=== PATIENT | male | born 1990 | race Two or more races ===

== ENCOUNTER 2023-07-22 09:45 | Inpatient (IN) | payer MEDICAID, OTHER ==
[~2023-07-22] VITALS: Ht 170.2 cm; Wt 72.7 kg
[2023-07-22] MEDS: SODIUM CHLORIDE 0.9% 1,000 ML IVB ONE (10:57)
[2023-07-22 11:09] LABS: Acetaminophen < 2.0 UG/ML (10.0-20.0); Salicylate < 3.0 mg/dL (2.8-20.0)
[2023-07-22 15:17] LABS: Urine Bacteria NONE SEEN /hpf (None Seen); Urine Blood Negative /uL (Negative); Urine Clarity Clear (Clear); Urine Color Yellow (Yellow); Urine Hyaline Cast FEW /lpf (0 - 2); Urine Protein, UAD 1+ (Negative); Urine Specific Gravity 1.017 (1.001-1.035); Urine Urobilinogen Normal (Negative); Urine WBC 1 /hpf (0 - 3); Urine pH 5.5 (5.0-8.0)
[2023-07-22 15:29] LABS: Amphetamine Screen, Urine Pos (NEGATIVE); Barbiturate Scree,Urine Neg (NEGATIVE); Benzodiazephine Screen, Urine Pos (NEGATIVE); Cannabinoid Screen, Urine Pos (NEGATIVE); Cocaine Screen, Urine Neg (NEGATIVE); Opiate Scree,Urine Neg (NEGATIVE); Phencyclidine Screen, Urine Neg (NEGATIVE)
[2023-07-22 17:33] VITALS: PULSE 131; RESP 37; O2SAT 86
[2023-07-22 20:25] VITALS: PULSE 102; RESP 20; O2SAT 100
[2023-07-23] MEDS: IPRATROPIUM BROM 0.5 MG/2.5ML INH SOL ONE (01:42)
[2023-07-23] MEDS: IPRATROPIUM BROM 0.5 MG/2.5ML INH SOL HHN ONE (01:42)
[2023-07-23] MEDS: ALBUTEROL SULF 2.5 MG/0.5ML(0.5%) NEB SOLN HHN ONE (01:42)
[2023-07-23 01:48] LABS: Base Excess -0.9 mmol/L (-2.0-2.0)
[2023-07-23 01:52] LABS: Basophils # (auto) 0 10 ^3/uL (0-0.2); Basophils % (auto) 0.1 % (0.0-2.0); Eosinophils # (auto) 0.1 10 ^3/uL (0-0.8); Eosinophils % (auto) 0.5 % (0.0-7.0); Hematocrit 36.2 % (41.0-53.0); Hemoglobin 11.7 g/dL (13.5-17.5); Lymphocytes # (auto) 1.5 10 ^3/uL (0.4-5.4); Lymphocytes % (auto) 12.7 % (10.0-50.0); Mean Corpuscular Hemoglobin 28.7 pg (28.0-32.0); Mean Corpuscular Hgb Conc. 32.3 g/dL (32.0-36.0); Mean Corpuscular Volume 88.8 fL (80.0-100.0); Monocytes # (auto) 0.9 10 ^3/uL (0-1.3); Monocytes % (auto) 7.5 % (0.0-12.0); Neutrophils # (auto) 9.2 10 ^3/uL (1.6-8.6); Neutrophils % (auto) 79.2 % (37.0-80.0); Nucleated Red Blood Cells % 0.1 %; Red Blood Cells 4.07 10^6/uL (4.5-5.90); Red Cell Distribution Width 13.5 % (11.8-14.3); White Blood Cell 11.6 10^3/uL (4.4-10.8)
[2023-07-23 02:06] LABS: INR 1.09 (0.9-1.15); Partial Thromboplastin Time 30.2 SEC (24.5-34.5); Prothrombin Time 11.4 sec (9.3-11.8)
[2023-07-23 02:23] LABS: Alanine Aminotransferase 48 U/L (7-40); Albumin 3.8 g/dL (3.2-4.8); Alkaline Phosphatase 52 U/L (46-116); Anion Gap 4 (5-15); Aspartate Aminotransferase 81 U/L (13-40); BUN/Creatinine Ratio 9.2 (10.0-20.0); Bilirubin, Total 0.5 mg/dL (0.2-1.0); Blood Urea Nitrogen 12 mg/dL (9-23); Calcium 8.1 mg/dL (8.7-10.4); Carbon Dioxide 25 mmol/L (20-30); Chloride 108 mmol/L (98-107); Glucose 101 mg/dL (74-106); Magnesium 1.9 mg/dL (1.6-2.6); Potassium 4.1 mmol/L (3.5-5.1); Sodium 137 mmol/L (136-145)
[2023-07-23 02:24] LABS: Total Protein 5.9 g/dL (5.7-8.2)
[2023-07-23] MEDS: HEPARIN SODIUM (PORCINE) 5000 UNITS/ML 1ML VIAL IV ONE (03:15)
[2023-07-23] MEDS: HEPARIN DRIP/D5W 100UNITS/ML 250 ML IV SCH ×2 (03:15→22:54)
[2023-07-23] MEDS: SODIUM CHLORIDE 0.9% 1,000 ML IV SCH (04:00)
[2023-07-23] MEDS ORDERED: MORPHINE SULFATE INJ 2 MG/ml SYRG IV PRN (04:00)
[2023-07-23] MEDS ORDERED: NITROGLYCERIN 0.4 MG SL TAB SL PRN (04:00)
[2023-07-23] MEDS ORDERED: ONDANSETRON HCL 4 MG/2 ML VIAL IV PRN (04:00)
[2023-07-23] MEDS: ATORVASTATIN 20 MG TAB PO ONE (04:11)
[2023-07-23] MEDS: CLINDAMYCIN 600MG IV 50 ML IV ONE (04:12)
[2023-07-23] MEDS: levoFLOXacin 500MG 100 ML IV ONE (04:12)
[2023-07-23 04:18] LABS: Magnesium 1.9 mg/dL (1.6-2.6)
[2023-07-23] MEDS: CLINDAMYCIN 600MG IV 50 ML IV SCH (06:28)
[2023-07-23] MEDS: cefTRIAXone 1GM/50ML D5W 50 ML IV SCH (09:00)
[2023-07-23] MEDS ORDERED: METOPROLOL SUCCINATE XL 50 MG TAB PO SCH (10:00)
[2023-07-23] MEDS ORDERED: ASPirin 81 mg TAB PO SCH (10:00)
[2023-07-23] MEDS: ASPirin 325 MG TAB PO SCH (10:00)
[2023-07-23 10:39] LABS: INR 1.16 (0.9-1.15); Partial Thromboplastin Time 51.4 SEC (24.5-34.5); Prothrombin Time 12.1 sec (9.3-11.8)
[2023-07-23 16:34] LABS: INR 1.09 (0.9-1.15); Partial Thromboplastin Time 52.7 SEC (24.5-34.5); Prothrombin Time 11.4 sec (9.3-11.8)
[2023-07-23 17:16] VITALS: PULSE 106; RESP 20; O2SAT 96
[2023-07-23 19:45] VITALS: PULSE 18; RESP 18; O2SAT 100
[2023-07-23 21:59] LABS: INR 1.05 (0.9-1.15); Partial Thromboplastin Time 44.9 SEC (24.5-34.5)
[2023-07-24 07:28] LABS: Basophils # (auto) 0 10 ^3/uL (0-0.2); Basophils % (auto) 0.4 % (0.0-2.0); Eosinophils # (auto) 0.2 10 ^3/uL (0-0.8); Eosinophils % (auto) 2.2 % (0.0-7.0); Hematocrit 37.2 % (41.0-53.0); Hemoglobin 12.3 g/dL (13.5-17.5); Lymphocytes % (auto) 17.4 % (10.0-50.0); Mean Corpuscular Hemoglobin 28.8 pg (28.0-32.0); Mean Corpuscular Hgb Conc. 32.9 g/dL (32.0-36.0); Mean Corpuscular Volume 87.3 fL (80.0-100.0); Neutrophils # (auto) 8.1 10 ^3/uL (1.6-8.6); Nucleated Red Blood Cells % 0.1 %; Red Blood Cells 4.26 10^6/uL (4.5-5.90); Red Cell Distribution Width 12.8 % (11.8-14.3); White Blood Cell 11.4 10^3/uL (4.4-10.8)
[2023-07-24 07:49] LABS: INR 1.04 (0.9-1.15); Partial Thromboplastin Time 39.7 SEC (24.5-34.5); Prothrombin Time 10.9 sec (9.3-11.8)
[2023-07-24 07:50] LABS: Alanine Aminotransferase 46 U/L (7-40); Alkaline Phosphatase 60 U/L (46-116); Anion Gap 7 (5-15); Aspartate Aminotransferase 51 U/L (13-40); BUN/Creatinine Ratio 7.6 (10.0-20.0); Blood Urea Nitrogen 7 mg/dL (9-23); Calcium 9.1 mg/dL (8.5-10.1); Carbon Dioxide 24 mmol/L (20-30); Chloride 106 mmol/L (98-107); Glucose 89 mg/dL (74-106); Potassium 3.8 mmol/L (3.5-5.1); Sodium 137 mmol/L (136-145)
[2023-07-24 07:51] LABS: Bilirubin, Total 0.6 mg/dL (0.2-1.0); Total Protein 6.1 g/dL (5.7-8.2)
[2023-07-24 08:00] VITALS: PULSE 83; RESP 22; O2SAT 97
[2023-07-24] MEDS: HEPARIN DRIP/D5W 100UNITS/ML 250 ML IV SCH (08:46)
[2023-07-24 09:23] LABS: Free T3 2.35 pg/mL (2.3-4.2)
[2023-07-24 09:24] LABS: Free T4 (Free Thyroxine) 1.1 ng/dL (0.89-1.76)
[2023-07-24] MEDS: AZITHROMYCIN 500MG/ 250ML 250 ML IV SCH (09:26)
[2023-07-24] MEDS: ASPirin 81 mg TAB PO SCH (09:26)
[2023-07-24] MEDS ORDERED: AUG875T PO (15:20)
[2023-07-24 17:13] VITALS: BP 132/71; PULSE 94; RESP 18; TEMP 98.2; O2SAT 94
[2023-07-24 18:00] VITALS: BP 105/63; PULSE 70; RESP 18; O2SAT 97
== END 2023-07-24 18:59 | disposition home or self-care (01) | DRG 917 ==
LOC: EDBD 09:45 → ER 09:45 → TELE 07-23 03:57
PROVIDERS: ADMIT Internal Medicine Pulmonary Disease; ATTEND Internal Medicine Pulmonary Disease
DX: T43.621A Poisoning by amphetamines, accidental (unintentional), initial encounter (principal); G92.8 Other toxic encephalopathy; I21.4 Non-ST elevation (NSTEMI) myocardial infarction; J69.0 Pneumonitis due to inhalation of food and vomit; I42.9 Cardiomyopathy, unspecified; E87.70 Fluid overload, unspecified; F17.200 Nicotine dependence, unspecified, uncomplicated; X58.XXXA Exposure to other specified factors, initial encounter; Z91.199 Patient's noncompliance with other medical treatment and regimen due to unspecified reason
CPT/HCPCS: 36415; 36600; 70450; 71045; 71275; 80053; 80061; 80307; 80320; 80329; 81001; 82805; 83605; 83735; 83880; 84439; 84443; 84481; 84484; 85025; 85610; 85730; 87040; 93005; 93306; 94640; 96361; 96365; 96375; G0378; J1956; J3490

== ENCOUNTER 2024-07-02 12:24 | Inpatient (IN) | payer MEDICAID ==
[~2024-07-02] VITALS: Ht 160 cm; Wt 64.5 kg
[~2024-07-02 12:24] MED LIST: AUG875T PO
--- NOTE | 2024-07-02 13:24 | ED.PDOC ---
Musculoskeletal HPI Comments 34 year old male presents to the ED with chief complaint of left arm swelling and pain. Patient reports that he had noticed that his left arm had become increasingly swollen with associated redness and throbbing pain which radiates from his left elbow. Patient relays that it has worsened over time. Patient states he believes a spider bit him as he sleeps in an abandoned home and it is very unclean. Patient denies any IV drug use, fever, chills, numbness, weakness, or dizziness. Chief Complaint: Upper Extremity Time Seen by MD: 13:21 Primary Care Provider: ARIN Reviewed Notes: Nurses Notes, Medications, Allergies Allergies: Coded Allergies: NO KNOWN ALLERGIES (Unverified , 07/22/23) Home Meds Active Scripts Amoxicillin & Pot Clavulanate (AUGMENTIN TABLET) 875 Mg Tb, 875 MG PO BID for 7 Days, #14 TAB Prov:JAMEL PARNELL RESIDENT 07/24/23 Information Source: Patient Mode of Arrival: Ambulatory Location: Left Extremity Location: Arm Timing: Days Prehospital treatment: None Severity: Moderate Able to Move Extremity: Yes Bear Weight: Fully Pain: Moderate Mechanism: Spontaneous Circumstances: Spontaneous Onset of Symptoms: Spontaneous Symptoms: Swelling, Pain, Erythema, Warmth DVT Risk Factors: NONE Past Medical History PAST MEDICAL HISTORY: Denies Surgical History: Unknown Family History Family History: Unknown Social History Smoker: Cigarettes Alcohol: Denies ETOH Use Drugs: Marijuana, Methamphetamine, Other Lives In: Homeless Constitutional: denies: chills, diaphoresis, fatigue, fever, malaise, sweats, weakness, others EENTM: denies: blurred vision, double vision, ear bleeding, ear discharge, ear drainage, ear pain, ear ringing, eye pain, eye redness, hearing loss, mouth pain, mouth swelling, nasal discharge, nose bleeding, nose congestion, nose pain, photophobia, tearing, throat pain, throat swelling, voice changes, others Respiratory: denies: cough, hemoptysis, orthopnea, SOB at rest, shortness of breath, SOB with excertion, stridor, wheezing, others Cardiovascular: denies: chest pain, dizzy spells, diaphoresis, Dyspnea on exertion, edema, irregular heart beat, left arm pain, lightheadedness, palpitations, PND, syncope, others Gastrointestinal: denies: abdomen distended, abdominal pain, blood streaked bowels, constipated, diarrhea, dysphagia, difficulty swallowing, hematemesis, melena, nausea, poor appetite, poor fluid intake, rectal bleeding, rectal pain, vomiting, others Genitourinary: denies: burning, dysuria, flank pain, frequency, hematuria, inco ntinence, penile discharge, penile sore, pain, testicle pain, testicle swelling, urgency, others Neurological: denies: dizziness, fainting, headache, left sided numbness, left sided weakness, numbness, paresthesia, pre-existing deficit, right sided numbness, right sided weakness, seizure, speech problems, tingling, tremors, weakness, others Musculoskeletal: denies: back pain, gout, joint pain, joint swelling, muscle pain, muscle stiffness, neck pain, others Integumetry: reports: others (Left arm swelling, redness, and pain); denies: bruises, change in color, change in hair/nails, dryness, laceration, lesions, lumps, rash, wounds Allergic/Immunocompromised: denies: Difficulty Healing, Frequent Infections, Hives, Itching, others Hematologic/Lymphatic: denies: anemia, blood clots, easy bleeding, easy bruising, swollen glands, others Endocrine: denies: excessive hunger, excessive sweating, excessive thirst, excessive urination, flushing, intolerance to cold, intolerance to heat, unexplained weight gain, unexplained weight loss, others Psychiatric: denies: anxiety, bipolar disorder, depression, hopeless, panic disorder, schizophrenia, sleepless, suicidal, others All Other Systems: Reviewed and Negative Physical Exam General Appearance: Moderate Distress, Normal HEENT: Normal ENT Inspection, PERRL/EOMI Neck: Full Range of Motion, Non-Tender, Normal, Normal Inspection Respiratory: Chest Non-Tender, Lungs Clear, No Accessory Muscle Use, No Respiratory Distress, Normal Breath Sounds Cardiovascular: No Edema, No JVD, No Murmur, No Gallop, Normal Peripheral Pulses, Regular Rate/Rhythm Breast Exam: Deferred Gastrointestinal: No Organomegaly, Non Tender, No Pulsatile Mass, Normal Bowel Sounds, Soft Genitalia: Deferred Pelvic: Deferred Rectal: Deferred Extremities: No calf tenderness, Normal capillary refill, Normal range of motion, Non-tender, No pedal edema, Swelling (Left elbow forearm) Musculoskeletal : Apperance: Normal Neurologic: Alert, retanned leather roller II-XII nml as Tested, No Motor Deficits, Normal Affect, Normal Mood, No Sensory Deficits Cerebellar Function: Normal Reflexes: Normal Skin: Dry, Normal Color, Warm Peripheral Pulses: 3+ Radial (R), 3+ Radial (L) Lymphatic: No Adenopathy Was a procedure done? Was a procedure done?: No Differential Diagnosis EXT Differential Diagnosis: Cellulitis X-Ray, Labs, Meds, VS Vital Signs Date Time Temp Pulse Resp B/P (MAP) Pulse Ox O2 Delivery O2 Flow Rate FiO2 07/02/24 12:52 99.0 140 19 131/82 (98) 95 Lab Test 07/02/24 14:01 Range/Units White Blood Count 23.8 H 4.4-10.8 10^3/uL Red Blood Count 4.73 4.5-5.90 10^6/uL Hemoglobin 13.8 13.5-17.5 g/dL Hematocrit 41.0 41.0-53.0 % Mean Corpuscular Volume 86.6 80.0-100.0 fL Mean Corpuscular Hemoglobin 29.1 28.0-32.0 pg Mean Corpuscular Hemoglobin Concent 33.6 32.0-36.0 g/dL Red Cell Distribution Width 12.0 11.8-14.3 % Platelet Count 396 140-450 10^3/uL Mean Platelet Volume 7.3 6.9-10.8 fL Neutrophils (%) (Auto) 87.3 H 37.0-80.0 % Lymphocytes (%) (Auto) 6.2 L 10.0-50.0 % Monocytes (%) (Auto) 6.0 0.0-12.0 % Eosinophils (%) (Auto) 0.1 0.0-7.0 % Basophils (%) (Auto) 0.4 0.0-2.0 % Neutrophils # (Auto) 20.8 H 1.6-8.6 10 ^3/uL Lymphocytes # (Auto) 1.5 0.4-5.4 10 ^3/uL Monocytes # (Auto) 1.4 H 0-1.3 10 ^3/uL Eosinophils # (Auto) 0 0-0.8 10 ^3/uL Basophils # (Auto) 0.1 0-0.2 10 ^3/uL Nucleated Red Blood Cells 0.0 % Sodium Level 135 L 136-145 mmol/L Potassium Level 4.1 3.5-5.1 mmol/L Chloride Level 100 98-107 mmol/L Carbon Dioxide Level 25 20-31 mmol/L Anion Gap 10 5-15 Blood Urea Nitrogen 12 9-23 mg/dL Creatinine 1.14 0.700-1.30 mg/dL Glomerular Filtration Rate Calc 85 >90 mL/min BUN/Creatinine Ratio 10.5 10.0-20.0 Serum Glucose 118 H 74-106 mg/dL Lactic Acid Level 1.1 0.4-2.0 mmol/L Calcium Level 10.1 8.7-10.4 mg/dL Patient alert. Has swelling redness of the left elbow extending to the hand. Vitals stable. Answering all questions. Was given Rocephin. Was given clindamycin. Establish intravenous access. Was given fluids. Denies use of any drugs. WBC elevated. Denies shortness a breath. No leg swelling. Explained to the patient. Continue cardiac monitoring. Time of 1ST Reevaluation: 14:21 Reevaluation 1ST: Unchanged Patient Education/Counseling: Diagnosis, Treatment Family Education/Counseling: No Family Present Additional Information I reviewed the following notes from patient's past medical encounters: 07/23/23 for ALOC due to polysubstance abuse The following tests were ordered, and results were reviewed by me: Lactic, Blood culture, CBC, BMP, UDS Additional Information was gathered from interviewing the following independent historians: None I reviewed and agreed with the following test results read by other providers: None I discussed treatment and results with medical personnel. Departure 1 Departure Time of Disposition: 15:17 Impression: Primary Impression: Cellulitis Qualified Codes: L03.114 - Cellulitis of left upper limb Disposition: ADMITTED INPATIENT Admit to: Med Surg Condition: Guarded Critical Care Note Critical Care Time?: No Stability Stability form required: No Heart Score Heart Score: Heart Score Response (Comments) Value History N/A 0 EKG N/A 0 Age N/A 0 Risk Factors N/A 0 Troponin N/A 0 Total 0 I personally scribed for STONE QUIROGA MD ([email or web address]) on 07/02/24 at 13:24. Electronically submitted by Abimael Hogan ([email or web address]). I personally scribed for STONE QUIROGA MD ([email or web address]) on 07/02/24 at 13:25. Electronically submitted by Abimael Hogan ([email or web address]). STONE QUIROGA MD Jul 02, 2024 13:24
[2024-07-02] MEDS: SODIUM CHLORIDE 0.9% 1,000 ML IV ONE ×2 (13:30→15:27)
[2024-07-02 14:21] LABS: Basophils # (auto) 0.1 10 ^3/uL (0-0.2); Basophils % (auto) 0.4 % (0.0-2.0); Eosinophils # (auto) 0 10 ^3/uL (0-0.8); Eosinophils % (auto) 0.1 % (0.0-7.0); Hemoglobin 13.8 g/dL (13.5-17.5); Lymphocytes # (auto) 1.5 10 ^3/uL (0.4-5.4); Lymphocytes % (auto) 6.2 % (10.0-50.0); Mean Corpuscular Hemoglobin 29.1 pg (28.0-32.0); Mean Corpuscular Hgb Conc. 33.6 g/dL (32.0-36.0); Mean Corpuscular Volume 86.6 fL (80.0-100.0); Monocytes # (auto) 1.4 10 ^3/uL (0-1.3); Neutrophils # (auto) 20.8 10 ^3/uL (1.6-8.6); Neutrophils % (auto) 87.3 % (37.0-80.0); Platelet Count (auto) 396 10^3/uL (140-450); Red Blood Cells 4.73 10^6/uL (4.5-5.90); White Blood Cell 23.8 10^3/uL (4.4-10.8)
[2024-07-02 14:30] LABS: Chloride 100 mmol/L (98-107); Potassium 4.1 mmol/L (3.5-5.1)
[2024-07-02 14:31] LABS: Anion Gap 10 (5-15); Carbon Dioxide 25 mmol/L (20-31)
[2024-07-02 14:32] LABS: Calcium 10.1 mg/dL (8.7-10.4)
[2024-07-02 14:36] LABS: BUN/Creatinine Ratio 10.5 (10.0-20.0); Blood Urea Nitrogen 12 mg/dL (9-23)
[2024-07-02 14:37] LABS: Glucose 118 mg/dL (74-106); Sodium 135 mmol/L (136-145)
[2024-07-02] MEDS: cefTRIAXone 1GM/50ML D5W 50 ML IV ONE (15:37)
[2024-07-02] MEDS ORDERED: ONDANSETRON HCL 4 MG/2 ML VIAL IV PRN (16:15)
[2024-07-02] MEDS: CLINDAMYCIN 600MG IV 50 ML IV ONE (16:16)
--- NOTE | 2024-07-02 16:49 | DVHHP2 ---
History of Present Illness Reason for Visit: Left arm pain and swelling History of Present Illness Barron Hicks is a 34-year-old male with no past medical history who presents to the ED for left arm pain and swelling x1 day. Patient reports that he thinks it is a spider bite and reports that he is homeless. Patient denies taking any medications, alcohol abuse, smoking, or illicit drug use. Patient denies chest pain, shortness of breath, abdominal pain, nausea, vomiting, diarrhea, recent sick contacts, IV drug use, lightheadedness, and dizziness. Past Surgical History: None Family History: None Smoke: No ALCOHOL: none Drugs: None Lives: Homeless Domestic Violence: Neg Review of Systems Constitutional: Yes: Fever; No: Chills, Sweats, Weakness, Malaise, Other Eyes: No: Pain, Vision change, Conjunctivae inflammation, Eyelid inflammation, Other, Redness ENT: No: Ear pain, Ear discharge, Nose pain, Nose discharge, Nose congestion, Mouth pain, Mouth swelling, Throat pain, Throat swelling, Other Respiratory: No: Cough, Dry, Shortness of breath, SOB with excertion, Wheezing, Hemoptysis, Pleuritic Pain, Sputum, Wheezing, Other Cardiovascular: No: Chest Pain, Palpitations, Orthopnea, Paroxysmal Noc. Dyspnea, Edema, Lt Headedness, Other Gastrointestinal: No: Nausea, Vomiting, Abdominal Pain, Diarrhea, Constipation, Melena, Hematochezia, Other Genitourinary: No Dysuria, No Frequency, No Incontinence, No Hematuria, No Retention, No Other Musculoskeletal: arm pain; No: other, neck pain, shoulder pain, back pain, hand pain, leg pain, foot pain Skin: Other (Swelling and erythema left arm); No: Rash, Lesions, Jaundice, Bruising Neurological: No: Weakness, Numbness, Incoordination, Change in speech, Confusion, Seizures, Other Allergies: Coded Allergies: NO KNOWN ALLERGIES (Unverified , 07/22/23) Medications Current Medications Medications Dose Ordered Sig/Norah Route Start Time Stop Time Status Last Admin Dose Admin Ceftriaxone Sodium 50 ml @ 100 mls/hr DAILY@09 IV 07/03/24 09:00 UNV Clindamycin Phosphate 50 ml @ 50 mls/hr Q8HR IV 07/02/24 22:00 UNV Sodium Chloride 1,000 ml @ 100 mls/hr Q10H IV 07/02/24 16:15 UNV Acetaminophen/ Hydrocodone Bitart 1 tab Q4HP PRN PO 07/02/24 16:15 UNV Ondansetron HCl 4 mg Q4HP PRN IV 07/02/24 16:15 UNV Acetaminophen 650 mg Q6HP PRN PO 07/02/24 16:15 UNV Morphine Sulfate 2 mg Q4HPRN PRN IV 07/02/24 16:15 UNV Exam Vital Signs Vital Signs Date Time Temp Pulse Resp B/P (MAP) Pulse Ox O2 Delivery O2 Flow Rate FiO2 07/02/24 15:23 100.0 130 18 136/74 (94) 95 100.0 07/02/24 15:23 Room Air General Appearance: Alert, Oriented X3, Cooperative, No acute distress HEENT: Atraumatic, PERRLA, EOMI Respiratory: Normal air movement Cardiovascular: Normal S1, Normal S2, No murmurs Abdominal: Normal bowel sounds, Soft, No tenderness, No hepatospenomegaly, No masses Extremities: Other (Left arm from elbow to middle forearm erythema) Neuro: Normal gait, Normal speech, Strength at 5/5 X4 ext, Normal tone, Sensati on intact Psych/Mental Status: Mental status NL, Mood NL Labs/Xrays Labs Test 07/02/24 14:01 Range/Units White Blood Count 23.8 H 4.4-10.8 10^3/uL Red Blood Count 4.73 4.5-5.90 10^6/uL Hemoglobin 13.8 13.5-17.5 g/dL Hematocrit 41.0 41.0-53.0 % Mean Corpuscular Volume 86.6 80.0-100.0 fL Mean Corpuscular Hemoglobin 29.1 28.0-32.0 pg Mean Corpuscular Hemoglobin Concent 33.6 32.0-36.0 g/dL Red Cell Distribution Width 12.0 11.8-14.3 % Platelet Count 396 140-450 10^3/uL Mean Platelet Volume 7.3 6.9-10.8 fL Neutrophils (%) (Auto) 87.3 H 37.0-80.0 % Lymphocytes (%) (Auto) 6.2 L 10.0-50.0 % Monocytes (%) (Auto) 6.0 0.0-12.0 % Eosinophils (%) (Auto) 0.1 0.0-7.0 % Basophils (%) (Auto) 0.4 0.0-2.0 % Neutrophils # (Auto) 20.8 H 1.6-8.6 10 ^3/uL Lymphocytes # (Auto) 1.5 0.4-5.4 10 ^3/uL Monocytes # (Auto) 1.4 H 0-1.3 10 ^3/uL Eosinophils # (Auto) 0 0-0.8 10 ^3/uL Basophils # (Auto) 0.1 0-0.2 10 ^3/uL Nucleated Red Blood Cells 0.0 % Sodium Level 135 L 136-145 mmol/L Potassium Level 4.1 3.5-5.1 mmol/L Chloride Level 100 98-107 mmol/L Carbon Dioxide Level 25 20-31 mmol/L Anion Gap 10 5-15 Blood Urea Nitrogen 12 9-23 mg/dL Creatinine 1.14 0.700-1.30 mg/dL Glomerular Filtration Rate Calc 85 >90 mL/min BUN/Creatinine Ratio 10.5 10.0-20.0 Serum Glucose 118 H 74-106 mg/dL Lactic Acid Level 1.1 0.4-2.0 mmol/L Calcium Level 10.1 8.7-10.4 mg/dL Assessment/Plan Assessment/Plan Assessment/Plan: Left arm cellulitis rule out sepsis Labs UA IV antibiotics-clindamycin plus ceftriaxone NS 2 L given ED UDS Lactic Blood cultures ESR CRP CT left upper arm A.m. labs director learning services consult FEN/PPX Diet IV fluids DVT prophylaxis not indicated patient ambulating PUD prophylaxis not indicated no history of GERD or GI bleed Discussed plan of care with patient and nurse Admit to [facility] No home medications to reconcile I Plan discussed with: Patient My Orders Orders - OLGA LIDIA CAMPBELL [employer] Procedure Category Date Status Time Erythrocyte LAB 07/02/24 Logged Sedimentation Rate 16:10 C-Reactive Protein LAB 07/02/24 Logged 16:10 Ceftriaxone 1gm/50ml PHA 07/03/24 Logged D5w (Rocephin) 09:00 Clindamycin 600mg Iv PHA 07/02/24 Logged (Cleocin Iv) 22:00 Urinalysis LAB 07/02/24 Logged 16:[address] 07/02/24 Logged Contrast 16:12 Allergies NIYA 07/02/24 In Process 16:12 Code Status CODE 07/02/24 Transmitted 16:12 Sodium Chloride 0.9% PHA 07/02/24 Logged 16:15 Hydrocodone-Acet PHA 07/02/24 Logged 5/325mg Tab ([place] 16:15 Ondansetron Hcl PHA 07/02/24 Logged (Zofran) 16:15 Complete Blood Count LAB 07/03/24 Verified 04:00 Comprehensive LAB 07/03/24 Verified Metabolic Panel 04:00 Cardiac DIET 07/02/24 Transmitted Diet-2gna,Lofat,Lochol Dinner Acetaminophen Tablet PHA 07/02/24 Logged (Tylenol Tablet) 16:15 Morphine Sulfate PHA 07/02/24 Logged Injection 16:15 Admit ADMIT 07/02/24 Transmitted 16:31 Date of Service: Jul 02, 2024 Billing Provider: OLGA LIDIA CAMPBELL Common Visit Codes: [id number] INP/OBS CARE (HIGH) OLGA LIDIA CAMPBELL Jul 02, 2024 16:49
[2024-07-02] MEDS: SODIUM CHLORIDE 0.9% 1,000 ML IV SCH (16:50)
[2024-07-02 17:48] LABS: Erythrocyte Sedimentation Rate 13 mm/hr (0-20)
--- NOTE | 2024-07-02 18:22 | DVH ---
INDICATION: pain and swelling COMPARISON: None TECHNIQUE: CT of the right was performed without contrast. Volume transverse images were obtained a nd reconstructed in multiple planes using bone and soft tissue algorithms. CONTRAST: None Radiation Dose Information: CT Dose: CTDI volume is 7.75 mGy. Dose-length product is 430.23 mGy*cm FINDINGS: The alignment is normal. The joint spaces are normal. There is no fracture, dislocation, or focal osseous lesions. Edema in the soft tissues dorsally of the proximal ulna. There are no fluid collections identified. Findings may represent a cellulitis. There are no bony fractures or erosions. IMPRESSION: No fractures or dislocations Subcutaneous edema in the dorsal soft tissues of the proximal ulna. There are no drainable fluid collections No radiopaque foreign bodies.
[2024-07-02] MEDS: CLINDAMYCIN 600MG IV 50 ML IV SCH (22:31)
[2024-07-03] VITALS (8 sets, daily range): BP systolic 111–131; BP diastolic 56–82; PULSE 106–140; RESP 16–20; TEMP 97.8–101.6; O2SAT 95–98
[2024-07-03 05:48] LABS: Basophils # (auto) 0.1 10 ^3/uL (0-0.2); Basophils % (auto) 0.3 % (0.0-2.0); Eosinophils # (auto) 0 10 ^3/uL (0-0.8); Eosinophils % (auto) 0.2 % (0.0-7.0); Hematocrit 38.1 % (41.0-53.0); Hemoglobin 12.7 g/dL (13.5-17.5); Lymphocytes # (auto) 2.1 10 ^3/uL (0.4-5.4); Lymphocytes % (auto) 8.7 % (10.0-50.0); Mean Corpuscular Hemoglobin 29.9 pg (28.0-32.0); Mean Corpuscular Hgb Conc. 33.3 g/dL (32.0-36.0); Mean Corpuscular Volume 89.9 fL (80.0-100.0); Monocytes # (auto) 2.2 10 ^3/uL (0-1.3); Monocytes % (auto) 9.2 % (0.0-12.0); Neutrophils # (auto) 19.9 10 ^3/uL (1.6-8.6); Neutrophils % (auto) 81.6 % (37.0-80.0); Nucleated Red Blood Cells % 0.1 %; Platelet Count (auto) 298 10^3/uL (140-450); Red Blood Cells 4.24 10^6/uL (4.5-5.90); Red Cell Distribution Width 12.3 % (11.8-14.3); White Blood Cell 24.4 10^3/uL (4.4-10.8)
[2024-07-03 06:12] LABS: Albumin 4.3 g/dL (3.2-4.8); Alkaline Phosphatase 103 U/L (46-116); Anion Gap 11 (5-15); Aspartate Aminotransferase 38 U/L (13-40); BUN/Creatinine Ratio 13.5 (10.0-20.0); Blood Urea Nitrogen 12 mg/dL (9-23); Calcium 8.9 mg/dL (8.7-10.4); Carbon Dioxide 23 mmol/L (20-31); Chloride 101 mmol/L (98-107); Glucose 91 mg/dL (74-106); Potassium 4.3 mmol/L (3.5-5.1)
[2024-07-03 06:13] LABS: Bilirubin, Total 1.1 mg/dL (0.2-1.0); Total Protein 6.1 g/dL (5.7-8.2)
[2024-07-03 06:14] LABS: Alanine Aminotransferase 52 U/L (7-40); Sodium 135 mmol/L (136-145)
[2024-07-03] MEDS: MORPHINE SULFATE INJ 2 MG/ml SYRG IV PRN (08:47)
[2024-07-03] MEDS: cefTRIAXone 1GM/50ML D5W 50 ML IV SCH (10:27)
[2024-07-03] MEDS: HYDROcodone-ACET 5/325MG TAB PO PRN (10:28)
--- NOTE | 2024-07-03 13:51 | DVHPN2 ---
Reviewed: Care Plan, H&P, Labs, Medications Changes from previous H/P or p: No Changes General: Per HPI Eyes: No Pain, No Vision change, No Conjunctivae inflammation, No Eyelid inflammation, No Other, No Redness ENT: No Ear pain, No Ear discharge, No Nose pain, No Nose discharge, No Nose congestion, No Mouth pain, No Mouth swelling, No Throat pain, No Throat swelling, No Other Cardiovascular: No Chest Pain, No Palpitations, No Orthopnea, No Paroxysmal Noc. Dyspnea, No Edema, No Lt Headedness, No Other Respiratory: No Cough, No Dry, No Shortness of breath, No SOB with excertion, No Wheezing, No Hemoptysis, No Pleuritic Pain, No Sputum, No Other Gastrointestinal: No Nausea, No Vomiting, No Abdominal Pain, No Diarrhea, No Constipation, No Melena, No Hematochezia, No Other Genitourinary: No Dysuria, No Frequency, No Incontinence, No Hematuria, No Retention, No Other Musculoskeletal: No other, No neck pain, No shoulder pain; arm pain; No back pain, No hand pain, No leg pain, No foot pain Skin: No Rash, No Lesions, No Jaundice, No Bruising; Other (Swelling and erythema left arm) Objective Vitals Vital Signs Date Time Temp Pulse Resp B/P (MAP) Pulse Ox O2 Delivery O2 Flow Rate FiO2 07/03/24 08:47 95 18 119/75 07/03/24 06:22 99.1 96 99.1 07/03/24 01:25 Room Air* 0 21 Intake/Output Intake and Output 07/03/24 07:00 Intake Total 200 ml Balance 200 ml Intake IV Total 200 ml Medications Current Medications Medications Dose Ordered Sig/Norah Route Start Time Stop Time Status Last Admin Dose Admin Ceftriaxone Sodium 50 ml @ 100 mls/hr DAILY@09 IV 07/03/24 09:00 07/03/24 10:27 100 MLS/HR Clindamycin Phosphate 50 ml @ 50 mls/hr Q8HR IV 07/02/24 22:00 07/03/24 05:23 50 MLS/HR Sodium Chloride 1,000 ml @ 100 mls/hr Q10H IV 07/02/24 16:15 07/03/24 12:15 100 MLS/HR Acetaminophen/ Hydrocodone Bitart 1 tab Q4HP PRN PO 07/02/24 16:15 07/03/24 10:28 1 TAB Ondansetron HCl 4 mg Q4HP PRN IV 07/02/24 16:15 Acetaminophen 650 mg Q6HP PRN PO 07/02/24 16:15 Morphine Sulfate 2 mg Q4HPRN PRN IV 07/02/24 16:15 07/03/24 08:47 2 MG Laboratory Results Laboratory Tests 07/03/24 05:02 Chemistry Test 07/02/24 14:01 07/03/24 05:02 Calcium Level 10.1 mg/dL (8.7-10.4) 8.9 mg/dL (8.7-10.4) Albumin 4.3 g/dL (3.2-4.8) Total Protein 6.1 g/dL (5.7-8.2) LFT Test 07/03/24 05:02 Alanine Aminotransferase (ALT) 52 U/L (7-40) H Alkaline Phosphatase 103 U/L (46-116) Aspartate Amino Transferase (AST) 38 U/L (13-40) Total Bilirubin 1.1 mg/dL (0.2-1.0) H Assessment/Plan Assessment/Plan Barron Hicks is a 34-year-old male with no past medical history who presents to the ED for left arm pain and swelling x1 day. Patient reports that he thinks it is a spider bite and reports that he is homeless. Patient denies taking any medications, alcohol abuse, smoking, or illicit drug use. Patient denies chest pain, shortness of breath, abdominal pain, nausea, vomiting, diarrhea, recent sick contacts, IV drug use, lightheadedness, and dizziness. Barron Hicks is a 34-year-old male with no past medical history who presents to the ED for left arm pain and swelling x1 day. Patient reports that he thinks it is a spider bite and reports that he is homeless. Patient denies taking any medications, alcohol abuse, smoking, or illicit drug use. Patient denies chest pain, shortness of breath, abdominal pain, nausea, vomiting, diarrhea, recent sick contacts, IV drug use, lightheadedness, and dizziness. Left arm cellulitis rule out sepsis left arm pain 07/03/2024: continue with current care Plan discussed with: Patient Date of Service: Jul 03, 2024 Billing Provider: AUNDREA CATHERINE DO Common Visit Codes: [id number] INP/OBS CARE(HIGH) AUNDREA CATHERINE DO Jul 03, 2024 13:51
[2024-07-03] MEDS: ACETAMINOPHEN 325 MG TAB PO PRN (17:21)
[2024-07-03 17:42] LABS: Urine Bacteria None Seen /hpf (None Seen)
[2024-07-03 18:02] LABS: Cannabinoid Screen, Urine Pos (NEGATIVE); Opiate Scree,Urine Neg (NEGATIVE); Phencyclidine Screen, Urine Neg (NEGATIVE); Urine Blood Negative /uL (Negative); Urine Clarity Clear (Clear); Urine Color Light-Yellow (Yellow); Urine Protein, UAD Negative (Negative); Urine Specific Gravity 1.011 (1.001-1.035); Urine Squamous Epithelial Cell None Seen /hpf (<5); Urine Urobilinogen 3 mg/dL (Negative); Urine WBC < 1 /HPF (0-3)
[2024-07-03 18:03] LABS: Amphetamine Screen, Urine Pos (NEGATIVE); Barbiturate Scree,Urine Neg (NEGATIVE); Benzodiazephine Screen, Urine Neg (NEGATIVE); Cocaine Screen, Urine Neg (NEGATIVE)
[2024-07-04] VITALS (7 sets, daily range): BP systolic 106–128; BP diastolic 65–82; PULSE 67–112; RESP 14–20; TEMP 98.2–98.9; O2SAT 95–100
--- NOTE | 2024-07-04 15:13 | DVHPN2 ---
Reviewed: Care Plan, H&P, Labs, Medications Changes from previous H/P or p: No Changes General: Per HPI Eyes: No Pain, No Vision change, No Conjunctivae inflammation, No Eyelid inflammation, No Other, No Redness ENT: No Ear pain, No Ear discharge, No Nose pain, No Nose discharge, No Nose congestion, No Mouth pain, No Mouth swelling, No Throat pain, No Throat swelling, No Other Cardiovascular: No Chest Pain, No Palpitations, No Orthopnea, No Paroxysmal Noc. Dyspnea, No Edema, No Lt Headedness, No Other Respiratory: No Cough, No Dry, No Shortness of breath, No SOB with excertion, No Wheezing, No Hemoptysis, No Pleuritic Pain, No Sputum, No Other Gastrointestinal: No Nausea, No Vomiting, No Abdominal Pain, No Diarrhea, No Constipation, No Melena, No Hematochezia, No Other Genitourinary: No Dysuria, No Frequency, No Incontinence, No Hematuria, No Retention, No Other Musculoskeletal: No other, No neck pain, No shoulder pain; arm pain; No back pain, No hand pain, No leg pain, No foot pain Skin: No Rash, No Lesions, No Jaundice, No Bruising; Other (Swelling and erythema left arm) Objective Vitals Vital Signs Date Time Temp Pulse Resp B/P (MAP) Pulse Ox O2 Delivery O2 Flow Rate FiO2 07/04/24 13:00 98.7 102 14 128/82 (97) 98 98.7 07/04/24 08:00 Room Air* 0 21 Intake/Output Intake and Output 07/04/24 07:00 Intake Total 2590 ml Balance 2590 ml Intake Oral 690 ml IV Total 1900 ml # Voids 3 Medications Current Medications Medications Dose Ordered Sig/Norah Route Start Time Stop Time Status Last Admin Dose Admin Ceftriaxone Sodium 50 ml @ 100 mls/hr DAILY@09 IV 07/03/24 09:00 07/04/24 09:01 100 MLS/HR Clindamycin Phosphate 50 ml @ 50 mls/hr Q8HR IV 07/02/24 22:00 07/04/24 13:23 50 MLS/HR Sodium Chloride 1,000 ml @ 100 mls/hr Q10H IV 07/02/24 16:15 07/04/24 09:05 100 MLS/HR Acetaminophen/ Hydrocodone Bitart 1 tab Q4HP PRN PO 07/02/24 16:15 07/04/24 13:22 1 TAB Ondansetron HCl 4 mg Q4HP PRN IV 07/02/24 16:15 Acetaminophen 650 mg Q6HP PRN PO 07/02/24 16:15 07/04/24 03:49 650 MG Morphine Sulfate 2 mg Q4HPRN PRN IV 07/02/24 16:15 07/03/24 17:32 2 MG Laboratory Results Laboratory Tests 07/03/24 05:02 Urinalysis Test 07/03/24 17:30 Urine Color Light-yellow (Yellow) Urine Clarity Clear (Clear) Urine pH 7.0 (5.0-9.0) Urine Specific [place] 1.011 (1.001-1.035) Urine Protein Negative (Negative) Urine Ketones Negative (Negative) Urine Blood Negative /uL (Negative) Urine Nitrite Negative (Negative) Urine Bilirubin Negative (Negative) Urine Urobilinogen 3 mg/dL (Negative) H Urine Leukocyte Esterase Negative /uL (Negative) Urine RBC 1 /hpf (0 - 3) Urine Microscopic WBC < 1 /HPF (0-3) Urine Squamous Epithelial Cells None seen /hpf (<5) Urine Bacteria None seen /hpf (None Seen) Urine Glucose Normal mg/dL (Normal) Microbiology Microbiology Date/Time Source Procedure Growth Status 07/02/24 14:01 Blood Blood Culture - Preliminary NO GROWTH AFTER 48 HOURS OF INCUBATION. Resulted Assessment/Plan Assessment/Plan Barron Hicks is a 34-year-old male with no past medical history who presents to the ED for left arm pain and swelling x1 day. Patient reports that he thinks it is a spider bite and reports that he is homeless. Patient denies taking any medications, alcohol abuse, smoking, or illicit drug use. Patient denies chest pain, shortness of breath, abdominal pain, nausea, vomiting, diarrhea, recent sick contacts, IV drug use, lightheadedness, and dizziness. Barron Hicks is a 34-year-old male with no past medical history who presents to the ED for left arm pain and swelling x1 day. Patient reports that he thinks it is a spider bite and reports that he is homeless. Patient denies taking any medications, alcohol abuse, smoking, or illicit drug use. Patient denies chest pain, shortness of breath, abdominal pain, nausea, vomiting, diarrhea, recent sick contacts, IV drug use, lightheadedness, and dizziness. Left arm cellulitis rule out sepsis left arm pain 07/03/2024: continue with current care 07/04/2024: escalate abx to [id number]/vanco due to still having edema and redness Plan discussed with: Patient My Orders Orders - AUNDREA CATHERINE DO Procedure Category Date Status Time Initiate Vte NIYA 07/04/24 In Process Prophylaxis 11:06 Date of Service: Jul 04, 2024 Billing Provider: AUNDREA CATHERINE DO Common Visit Codes: [id number] INP/OBS CARE(HIGH) AUNDREA CATHERINE DO Jul 04, 2024 15:13
[2024-07-04] MEDS ORDERED: VANCOMYCIN PER PHARMACY 0 MG IV SCH (16:00)
[2024-07-04] MEDS: VANCOMYCIN 1GM/250ML KIT 250 ML IV ONE (16:35)
[2024-07-04] MEDS ORDERED: VANCOMYCIN 1.5GM/300ML 300 ML IV ONE (17:00)
[2024-07-04] MEDS: PIPERACILLIN-TAZOB 3.375GM 100 ML IV ONE (18:50)
[2024-07-04] MEDS: PIPERACILLIN-TAZOB 3.375GM 100 ML IV SCH (22:45)
[2024-07-05] VITALS (8 sets, daily range): BP systolic 109–125; BP diastolic 61–77; PULSE 91–111; RESP 17–20; TEMP 97.4–98.6; O2SAT 93–100
[2024-07-05] MEDS: VANCOMYCIN 1GM/250ML KIT 250 ML IV SCH (01:19)
[2024-07-05 08:11] LABS: Chloride 105 mmol/L (98-107); Potassium 3.5 mmol/L (3.5-5.1); Sodium 138 mmol/L (136-145)
[2024-07-05 08:12] LABS: Anion Gap 9 (5-15); Carbon Dioxide 24 mmol/L (20-31)
[2024-07-05 08:17] LABS: BUN/Creatinine Ratio 10.2 (10.0-20.0); Blood Urea Nitrogen 10 mg/dL (9-23)
[2024-07-05 08:18] LABS: Glucose 109 mg/dL (74-106)
[2024-07-06 01:00] VITALS: BP 106/61; PULSE 79; RESP 17; TEMP 97.5; O2SAT 96
[2024-07-06 04:53] VITALS: BP 123/77; PULSE 93; RESP 17; TEMP 97.4; O2SAT 97
[2024-07-06 08:42] VITALS: BP 126/79; PULSE 104; RESP 16; TEMP 98.1; O2SAT 99
--- NOTE | 2024-07-06 15:59 | DVHPN2 ---
Reviewed: Care Plan, H&P, Labs, Medications Changes from previous H/P or p: No Changes General: Per HPI Eyes: No Pain, No Vision change, No Conjunctivae inflammation, No Eyelid inflammation, No Other, No Redness ENT: No Ear pain, No Ear discharge, No Nose pain, No Nose discharge, No Nose congestion, No Mouth pain, No Mouth swelling, No Throat pain, No Throat swelling, No Other Cardiovascular: No Chest Pain, No Palpitations, No Orthopnea, No Paroxysmal Noc. Dyspnea, No Edema, No Lt Headedness, No Other Respiratory: No Cough, No Dry, No Shortness of breath, No SOB with excertion, No Wheezing, No Hemoptysis, No Pleuritic Pain, No Sputum, No Other Gastrointestinal: No Nausea, No Vomiting, No Abdominal Pain, No Diarrhea, No Constipation, No Melena, No Hematochezia, No Other Genitourinary: No Dysuria, No Frequency, No Incontinence, No Hematuria, No Retention, No Other Musculoskeletal: No other, No neck pain, No shoulder pain; arm pain; No back pain, No hand pain, No leg pain, No foot pain Skin: No Rash, No Lesions, No Jaundice, No Bruising; Other (Swelling and erythema left arm) Objective Vitals Vital Signs Date Time Temp Pulse Resp B/P (MAP) Pulse Ox O2 Delivery O2 Flow Rate FiO2 07/06/24 08:42 98.1 104 16 126/79 (95) 99 98.1 07/05/24 20:00 Room Air* 0 21 Intake/Output Intake and Output 07/06/24 07:00 Intake Total 2326 ml Output Total 2250 ml Balance 76 ml Intake Oral 1626 ml IV Total 700 ml Output Urine Total 2250 ml # Voids 4 # Bowel Movements 1 Laboratory Results Laboratory Tests 07/03/24 05:02 07/05/24 07:24 07/06/24 06:17 Urinalysis Test 07/03/24 17:30 Urine Color Light-yellow (Yellow) Urine Clarity Clear (Clear) Urine pH 7.0 (5.0-9.0) Urine Specific [place] 1.011 (1.001-1.035) Urine Protein Negative (Negative) Urine Ketones Negative (Negative) Urine Blood Negative /uL (Negative) Urine Nitrite Negative (Negative) Urine Bilirubin Negative (Negative) Urine Urobilinogen 3 mg/dL (Negative) H Urine Leukocyte Esterase Negative /uL (Negative) Urine RBC 1 /hpf (0 - 3) Urine Microscopic WBC < 1 /HPF (0-3) Urine Squamous Epithelial Cells None seen /hpf (<5) Urine Bacteria None seen /hpf (None Seen) Urine Glucose Normal mg/dL (Normal) Microbiology Microbiology Date/Time Source Procedure Growth Status 07/02/24 14:01 Blood Blood Culture - Preliminary NO GROWTH AFTER 72 HOURS OF INCUBATION. Resulted Labs and/or images reviewed: Labs reviewed by me, Image(s) reviewed by me Assessment/Plan Assessment/Plan Barron Hicks is a 34-year-old male with no past medical history who presents to the ED for left arm pain and swelling x1 day. Patient reports that he thinks it is a spider bite and reports that he is homeless. Patient denies taking any medications, alcohol abuse, smoking, or illicit drug use. Patient denies chest pain, shortness of breath, abdominal pain, nausea, vomiting, diarrhea, recent sick contacts, IV drug use, lightheadedness, and dizziness. Barron Hicks is a 34-year-old male with no past medical history who presents to the ED for left arm pain and swelling x1 day. Patient reports that he thinks it is a spider bite and reports that he is homeless. Patient denies taking any medications, alcohol abuse, smoking, or illicit drug use. Patient denies chest pain, shortness of breath, abdominal pain, nausea, vomiting, diarrhea, recent sick contacts, IV drug use, lightheadedness, and dizziness. Left arm cellulitis rule out sepsis left arm pain 07/03/2024: continue with current care 07/04/2024: escalate abx to zosyn/vanco due to still having edema and redness 07/05/2024: continue with current care. pain is improving. this shows that pt is responding to vanco/zosyn and not cefepime Plan discussed with: Patient Date of Service: Jul 05, 2024 Billing Provider: AUNDREA CATHERINE DO Common Visit Codes: [id number] INP/OBS CARE(HIGH) AUNDREA CATHERINE DO Jul 06, 2024 15:59
--- NOTE | 2024-07-06 16:38 | DVHDS2 ---
Discharge Summary Date of Admission Jul 02, 2024 at 16:31 Date of Discharge: Jul 06, 2024 Labs/Diagnostic Data: Laboratory Results Test 07/06/24 06:17 07/05/24 15:00 07/05/24 07:24 07/03/24 17:30 Creatinine 1.02 mg/dL (0.700-1.30) Glomerular Filtration Rate Calc 98 mL/min (>90) Vancomycin Level Trough 17.1 ug/mL (5-10) Sodium Level 138 mmol/L (136-145) Potassium Level 3.5 mmol/L (3.5-5.1) Chloride Level 105 mmol/L (98-107) Carbon Dioxide Level 24 mmol/L (20-31) Anion Gap 9 (5-15) Blood Urea Nitrogen 10 mg/dL (9-23) BUN/Creatinine Ratio 10.2 (10.0-20.0) Serum Glucose 109 mg/dL (74-106) Calcium Level 9.0 mg/dL (8.7-10.4) Urine Color Light-yellow (Yellow) Urine Clarity Clear (Clear) Urine pH 7.0 (5.0-9.0) Urine Specific [place] 1.011 (1.001-1.035) Urine Protein Negative (Negative) Urine Ketones Negative (Negative) Urine Blood Negative /uL (Negative) Urine Nitrite Negative (Negative) Urine Bilirubin Negative (Negative) Urine Urobilinogen 3 mg/dL (Negative) Urine Leukocyte Esterase Negative /uL (Negative) Urine RBC 1 /hpf (0 - 3) Urine Microscopic WBC < 1 /HPF (0-3) Urine Squamous Epithelial Cells None seen /hpf (<5) Urine Bacteria None seen /hpf (None Seen) Urine Glucose Normal mg/dL (Normal) Urine Opiates Screen Neg (NEGATIVE) Urine Fentanyl Screen Pos (NEGATIVE) Urine Barbiturates Screen Neg (NEGATIVE) Urine Phencyclidine Screen Neg (NEGATIVE) Urine Amphetamines Screen Pos (NEGATIVE) Urine Benzodiazepines Screen Neg (NEGATIVE) Urine Cocaine Screen Neg (NEGATIVE) Urine Cannabinoids Screen Pos (NEGATIVE) Test 07/03/24 05:02 07/02/24 14:01 White Blood Count 24.4 10^3/uL (4.4-10.8) Red Blood Count 4.24 10^6/uL (4.5-5.90) Hemoglobin 12.7 g/dL (13.5-17.5) Hematocrit 38.1 % (41.0-53.0) Mean Corpuscular Volume 89.9 fL (80.0-100.0) Mean Corpuscular Hemoglobin 29.9 pg (28.0-32.0) Mean Corpuscular Hemoglobin Concent 33.3 g/dL (32.0-36.0) Red Cell Distribution Width 12.3 % (11.8-14.3) Platelet Count 298 10^3/uL (140-450) Mean Platelet Volume 7.3 fL (6.9-10.8) Neutrophils (%) (Auto) 81.6 % (37.0-80.0) Lymphocytes (%) (Auto) 8.7 % (10.0-50.0) Monocytes (%) (Auto) 9.2 % (0.0-12.0) Eosinophils (%) (Auto) 0.2 % (0.0-7.0) Basophils (%) (Auto) 0.3 % (0.0-2.0) Neutrophils # (Auto) 19.9 10 ^3/uL (1.6-8.6) Lymphocytes # (Auto) 2.1 10 ^3/uL (0.4-5.4) Monocytes # (Auto) 2.2 10 ^3/uL (0-1.3) Eosinophils # (Auto) 0 10 ^3/uL (0-0.8) Basophils # (Auto) 0.1 10 ^3/uL (0-0.2) Nucleated Red Blood Cells 0.1 % Total Bilirubin 1.1 mg/dL (0.2-1.0) Aspartate Amino Transferase (AST) 38 U/L (13-40) Alanine Aminotransferase (ALT) 52 U/L (7-40) Alkaline Phosphatase 103 U/L (46-116) Total Protein 6.1 g/dL (5.7-8.2) Albumin 4.3 g/dL (3.2-4.8) Erythrocyte Sedimentation Rate 13 mm/hr (0-20) Lactic Acid Level 1.1 mmol/L (0.4-2.0) C-Reactive Protein High Sensitivity 9.98 mg/dL (<1.0) Other Laboratory Tests 07/06/24 06:17 07/05/24 07:24 07/03/24 05:02 Brief Hx & Hospital Course: Barron Hicks is a 34-year-old male with no past medical history who presents to the ED for left arm pain and swelling x1 day. Patient reports that he thinks it is a spider bite and reports that he is homeless. Patient denies taking any medications, alcohol abuse, smoking, or illicit drug use. Patient denies chest pain, shortness of breath, abdominal pain, nausea, vomiting, diarrhea, recent sick contacts, IV drug use, lightheadedness, and dizziness. Left arm cellulitis rule out sepsis left arm pain 07/03/2024: continue with current care 07/04/2024: escalate abx to zosyn/vanco due to still having edema and redness 07/05/2024: continue with current care. pain is improving. this shows that pt is responding to vanco/zosyn and not cefepime 07/06/2024: pt left AMA while receiving Condition at Discharge: Good Final Diagnosis/Problems List see above Discharge Disposition: AMA Discharge Statement: "Patient was advised to return to the ER or call 911 if any headaches, dizziness, shortness of breath, chest pain, abdominal pain, bleeding, fevers, or worsening of medical condition. Patient was counseled about treatment plan, medications, possible side effects, patientverbalized understanding. All questions were answered to the best of my ability. This discharge took greater then 30 minutes in planning, reviewing documentation, counseling the patient, and discussing with other team members." ASSESSMENT ASSESSMENT Assessment Date of Service: Jul 06, 2024 Billing Provider: AUNDREA CATHERINE DO Common Visit Codes: [id number] DISCH DAY >30min AUNDREA CATHERINE DO Jul 06, 2024 16:38
== END 2024-07-06 08:50 | disposition left against medical advice (07) | DRG 720 ==
LOC: ER 12:24 → OVERFLOW 16:31 → WEST WING 07-03 14:29
PROVIDERS: ADMIT Internal Medicine; ATTEND Internal Medicine
DX: A41.9 Sepsis, unspecified organism (principal); F17.210 Nicotine dependence, cigarettes, uncomplicated; L03.114 Cellulitis of left upper limb; Z53.29 Procedure and treatment not carried out because of patient's decision for other reasons; Z59.00 Homelessness unspecified; Z79.899 Other long term (current) drug therapy
CPT/HCPCS: 36415; 73200; 80048; 80053; 80202; 80307; 81001; 82565; 83605; 85025; 85652; 86141; 87040; 96361; 96365; 96368; G0378; J2543; J3490

== ENCOUNTER 2024-11-25 20:37 | Emergency (ER) | payer MEDICAID | END 2024-11-25 21:30 | disposition left against medical advice (07) | LOC: ER 20:37 | DX: R51.9 Headache, unspecified (principal); Z53.21 Procedure and treatment not carried out due to patient leaving prior to being seen by health care provider ==

== ENCOUNTER 2024-11-27 21:15 | Emergency (ER) | payer MEDICAID ==
[~2024-11-27] VITALS: Ht 160 cm; Wt 67.5 kg
[2024-11-27 21:20] VITALS: BP 150/90; RESP 12; TEMP 98; O2SAT 95
[2024-11-27 21:55] VITALS: PULSE 106
--- NOTE | 2024-11-27 21:55 | ED.PDOC ---
HPI Comments 34-year-old male came to ER for chest pains. Patient states about an hour ago, sudden onset of midsternal chest pains, constant, sharp, nonradiating, 7/10 intensity, associated diaphoresis. Denies any shortness of breath, nausea or vomiting. Denies any history of similar chest pains. Denies any recent drug intake. Blood pressure upon arrival was 150/90 mm Hg Chief Complaint: Chest Pain Time Seen by MD: 21:54 Primary Care Provider: PATRICIAO Reviewed Notes: Nurses Notes Allergies: Coded Allergies: NO KNOWN ALLERGIES (Unverified , 07/22/23) Home Meds Active Scripts Amoxicillin & Pot Clavulanate (AUGMENTIN TABLET) 875 Mg Tb, 875 MG PO BID for 7 Days, #14 TAB Prov:JAMEL PARNELL RESIDENT 07/24/23 Information Source: Patient Mode of Arrival: Ambulatory Severity: Moderate Timing: Minutes Duration: Since onset Location: Substernal Radiation: No Radiation Quality: Sharp Onset: At Rest Cardiac Risk Factors: Smoker History of: None Associated Signs and Symptoms: Diaphoresis Review of Systems REVIEW OF SYSTEMS: No fever, no chills, or fatigue HEENT: No sore throat, no earache, no congestion, no neck pain. Cardiac: (+) chest pain. No palpitations. Lungs: No shortness of breath, no cough. GI: No nausea, no vomiting, no diarrhea, no constipation, no abdominal pain : No dysuria, frequency, or urgency. No hematuria. Musculoskeletal: No joint pain , no joint swelling, no extremity edema. Skin: No rash, no itching. Neuro: No headache, no dizziness, no weakness Vital Signs Vital Signs Date Time Temp Pulse Resp B/P (MAP) Pulse Ox O2 Delivery O2 Flow Rate FiO2 11/27/24 21:55 106 11/27/24 21:20 98.0 12 150/90 (110) 95 98.0 Physical Exam General: Awake, alert and oriented. No acute distress. Skin: Skin in warm, dry and intact. Appropriate color for ethnicity. Nailbeds pink with no cyanosis. HEENT: The head is normocephalic and atraumatic. Conjunctivae are clear without exudates or hemorrhage. Sclera is non-icteric. EOM are intact. No signs of nystagmus. Eyelids are normal in appearance without swelling or lesions. Oral mucosa is pink and moist Neck: The neck is supple with normal range of motion. No JVD. Cardiac: Heart rate and rhythm are normal. No murmurs, gallops, or rubs are auscultated. Respiratory: No signs of respiratory distress. Lung sounds are clear in all lobes bilaterally without rales, rhonchi, or wheezes. Abdominal: Abdomen is soft, non-tender without distention. Bowel sounds are present and normoactive in all four quadrants. Extremities: Upper and lower extremities are atraumatic in appearance without deformity or edema. Neurological: The patient is awake, alert and oriented to person, place, and time with normal speech. Speech is clear. There is no facial asymmetry. Psychiatric: Appropriate mood and affect. Good judgement and insight. No visual or auditory hallucinations. Past Medical History PAST MEDICAL HISTORY: Denies Surgical History: Denies all surgeries Family History Family History: Reviewed,noncontributory to illness Social History Smoker: Cigarettes Alcohol: Denies ETOH Use Drugs: Marijuana, Methamphetamine, Other (Fentanyl) Lives In: Homeless EKG EKG : Pulse Rate (adult): 106 Cardiac Rhythm: ST Was a procedure done? Was a procedure done?: No CP Differential Dx Differential Diagnosis: Other Differential Diagnosis: Angina, Chest Wall Pain, Costochondritis, Esophageal reflux/spasm, Gastritis, Myocardial Infarction X-Ray, Labs, Meds, VS Vital Signs Date Time Temp Pulse Resp B/P (MAP) Pulse Ox O2 Delivery O2 Flow Rate FiO2 11/27/24 21:55 106 11/27/24 21:32 106 11/27/24 21:20 98.0 104 12 150/90 (110) 95 98.0 Lab Test 11/27/24 21:29 Range/Units White Blood Count 7.5 4.4-10.8 10^3/uL Red Blood Count 4.51 4.5-5.90 10^6/uL Hemoglobin 12.9 L 13.5-17.5 g/dL Hematocrit 37.8 L 41.0-53.0 % Mean Corpuscular Volume 83.8 80.0-100.0 fL Mean Corpuscular Hemoglobin 28.6 28.0-32.0 pg Mean Corpuscular Hemoglobin Concent 34.2 32.0-36.0 g/dL Red Cell Distribution Width 12.3 11.8-14.3 % Platelet Count 208 140-450 10^3/uL Mean Platelet Volume 7.2 6.9-10.8 fL Neutrophils (%) (Auto) 50.3 37.0-80.0 % Lymphocytes (%) (Auto) 40.4 10.0-50.0 % Monocytes (%) (Auto) 5.5 0.0-12.0 % Eosinophils (%) (Auto) 3.2 0.0-7.0 % Basophils (%) (Auto) 0.6 0.0-2.0 % Neutrophils # (Auto) 3.8 1.6-8.6 10 ^3/uL Lymphocytes # (Auto) 3.0 0.4-5.4 10 ^3/uL Monocytes # (Auto) 0.4 0-1.3 10 ^3/uL Eosinophils # (Auto) 0.2 0-0.8 10 ^3/uL Basophils # (Auto) 0 0-0.2 10 ^3/uL Nucleated Red Blood Cells 0.1 % Sodium Level 142 136-145 mmol/L Potassium Level 4.1 3.5-5.1 mmol/L Chloride Level 108 H 98-107 mmol/L Carbon Dioxide Level 28 20-31 mmol/L Anion Gap 6 5-15 Blood Urea Nitrogen 13 9-23 mg/dL Creatinine 1.24 0.700-1.30 mg/dL Glomerular Filtration Rate Calc 77 >90 mL/min BUN/Creatinine Ratio 10.5 10.0-20.0 Serum Glucose 108 H 74-106 mg/dL Calcium Level 9.7 8.7-10.4 mg/dL Total Bilirubin 0.4 0.2-1.0 mg/dL Aspartate Amino Transferase (AST) 29 <34 U/L Alanine Aminotransferase (ALT) 41 H 7-40 U/L Alkaline Phosphatase 115 46-116 U/L Troponin I High Sensitivity < 3 L </=54 ng/L B-Type Natriuretic Peptide 4.68 0-100 pg/mL Total Protein 7.0 5.7-8.2 g/dL Albumin 4.7 3.2-4.8 g/dL Time of 1ST Reevaluation: 21:51 Reevaluation 1ST: Unchanged Patient Education/Counseling: Other (Treatment plan) Family Education/Counseling: No Family Present SEPSIS Sepsis Screen Date sepsis recognized/suspect: Nov 27, 2024 Time Sepsis recognized/suspect: 2119 Recent Procedure: No On Antibiotic Therapy: No Respiratory Rate >20: No Heart Rate >90: Yes Temp<36 C (96.8 F) or >38.3 C: No SBP <90 or MAP <65 mmHG: No New Acute Mental Status Change: No Is the patient on CPAP, BIPAP,: No Physician Orders Electrocardigram (11/27/24 21:19) Electrocardigram (11/27/24 22:19) Chest Xray 1 View (11/27/24 22:13) Vital Signs Date Time Temp Pulse Resp B/P (MAP) Pulse Ox O2 Delivery O2 Flow Rate FiO2 11/27/24 21:55 106 11/27/24 21:32 106 11/27/24 21:20 98.0 104 12 150/90 (110) 95 98.0 Laboratory Tests Test 11/27/24 21:29 White Blood Count 7.5 10^3/uL (4.4-10.8) Departure 1 Departure Time of Disposition: 01:43 Impression: Primary Impression: Chest pain Additional Impression: Eloped from emergency department Disposition: 07 LEFT AWOL/ELOPED Condition: Stable Comments Critical Care Note Critical Care Time?: No Stability Stability form required: No Heart Score Heart Score: Heart Score Response (Comments) Value History Slightly Suspicious 0 EKG Repolarization Disturb 1 Age <45 0 Risk Factors No known risk factors 0 Troponin Normal limit 0 Total 1 I personally scribed for WAYNE MARTINEZ MD ([email or web address]) on 11/27/24 at 21:55. Electronically submitted by Alex Shaw ([email or web address]). WAYNE MARTINEZ MD Nov 27, 2024 21:55
[2024-11-27] MEDS ORDERED: ASPirin 81 mg TAB PO ONE (22:15)
[2024-11-27 22:23] LABS: Basophils # (auto) 0 10 ^3/uL (0-0.2); Basophils % (auto) 0.6 % (0.0-2.0); Eosinophils # (auto) 0.2 10 ^3/uL (0-0.8); Eosinophils % (auto) 3.2 % (0.0-7.0); Hematocrit 37.8 % (41.0-53.0); Hemoglobin 12.9 g/dL (13.5-17.5); Lymphocytes % (auto) 40.4 % (10.0-50.0); Mean Corpuscular Hemoglobin 28.6 pg (28.0-32.0); Mean Corpuscular Hgb Conc. 34.2 g/dL (32.0-36.0); Mean Corpuscular Volume 83.8 fL (80.0-100.0); Monocytes # (auto) 0.4 10 ^3/uL (0-1.3); Monocytes % (auto) 5.5 % (0.0-12.0); Neutrophils # (auto) 3.8 10 ^3/uL (1.6-8.6); Neutrophils % (auto) 50.3 % (37.0-80.0); Nucleated Red Blood Cells % 0.1 %; Platelet Count (auto) 208 10^3/uL (140-450); Red Blood Cells 4.51 10^6/uL (4.5-5.90); Red Cell Distribution Width 12.3 % (11.8-14.3); White Blood Cell 7.5 10^3/uL (4.4-10.8)
[2024-11-27 22:36] LABS: Albumin 4.7 g/dL (3.2-4.8); Alkaline Phosphatase 115 U/L (46-116); Anion Gap 6 (5-15); Aspartate Aminotransferase 29 U/L (<34); BUN/Creatinine Ratio 10.5 (10.0-20.0); Bilirubin, Total 0.4 mg/dL (0.2-1.0); Blood Urea Nitrogen 13 mg/dL (9-23); Calcium 9.7 mg/dL (8.7-10.4); Carbon Dioxide 28 mmol/L (20-31); Potassium 4.1 mmol/L (3.5-5.1); Sodium 142 mmol/L (136-145)
[2024-11-27 22:40] LABS: Alanine Aminotransferase 41 U/L (7-40); Chloride 108 mmol/L (98-107); Glucose 108 mg/dL (74-106)
--- NOTE | 2024-12-01 14:13 | ECG ---
[facility] Test Date: 2024-11-27 Test Time: 21:20:58 Pat Name: NESSA MONTGOMERY Department: [facility] Room: Gender: M Filling Machine Tender: : 1990 Requested By: WAYNE MARTINEZ Order Number: [id number] Reading MD: Mendel Valenzuela Measurements Intervals [place] Rate: 106 P: 29 MI: 144 QRS: 49 QRSD: 91 T: 15 QT: 358 QTc: 476 Interpretive Statements Sinus tachycardia Borderline prolonged QT interval Electronically Signed On 12-02-2024 22:32:10 PDT by Mendel Valenzuela Please click the below link to view image of tracing.
== END 2024-11-27 22:57 | disposition left against medical advice (07) ==
LOC: ER 21:23
DX: R07.9 Chest pain, unspecified (principal); R07.2 Precordial pain; F17.210 Nicotine dependence, cigarettes, uncomplicated
CPT/HCPCS: 36415; 80053; 83880; 84484; 85025; 93005